=== PATIENT | female | born 1935 | race Caucasian/White ===

== ENCOUNTER 2019-10-18 00:59 | Emergency (ER) | payer MEDICARE, BC ==
--- NOTE | 2019-10-18 02:30 | EDM.PDOC ---
ED HPI GENERAL MEDICAL PROBLEM - General Chief Complaint: Laceration Stated Complaint: AMBULANCE Time Seen by Provider: 10/18/19 01:00 Source of Information: Reports: Patient, EMS, EMS Notes Reviewed, RN, RN Notes Reviewed History Limitations: Reports: No Limitations - History of Present Illness INITIAL COMMENTS - FREE TEXT/NARRATIVE: patient ER per [facility] with complaint of laceration to the ankle, and unable to stop the bleeding. Patient states she bumped her ankle on either her dresser or her bed, is unsure which. Patient states the blood was "squirting everywhere". Patient denies being on blood thinners. Onset: Today, Sudden - Related Data Allergies Allergy/AdvReac Type Severity Reaction Status Date / Time Sulfa (Sulfonamide Allergy Hives Verified 10/18/19 01:04 Antibiotics) Home Meds: Home Meds Latanoprost/Pf [Latanoprost 0.005% Eye Drop] 1 drop EYEBOTH BEDTIME 03/14/18 [ History] Timolol [Betimol] 1 drop EYEBOTH BEDTIME 03/14/18 [History] Aspirin 81 mg PO DAILY 10/18/19 [History] Metoprolol Succinate [Toprol XL] 12.5 mg PO DAILY 10/18/19 [History] Mirtazapine 7.5 mg PO BEDTIME 10/18/19 [History] Omeprazole 20 mg PO DAILY 10/18/19 [History] Rosuvastatin [Crestor] 5 mg PO BEDTIME 10/18/19 [History] amLODIPine [Norvasc] 5 mg PO DAILY 10/18/19 [History] lisinopriL [Lisinopril] 5 mg PO DAILY 10/18/19 [History] Past Medical History - Past Health History Medical/Surgical History: Denies Medical/Surgical History HEENT History: Reports: Glaucoma, Impaired Vision Other HEENT History: wears glasses Cardiovascular History: Reports: None Respiratory History: Reports: None Gastrointestinal History: Reports: None Genitourinary History: Reports: None 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 Musculoskeletal History: Reports: None Neurological History: Reports: None Psychiatric History: Reports: None Endocrine/Metabolic History: Reports: None Hematologic History: Reports: None Immunologic History: Reports: None Other Oncologic History: 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 ED EXAM, SKIN/RASH Exam: See Below Exam Limited By: No Limitations General Appearance: Alert, WD/WN, No Apparent Distress Eye Exam: Bilateral Eye: EOMI, Normal Inspection Ears: Normal External Exam, Hearing Grossly Normal Nose: Normal Inspection Throat/Mouth: Normal Inspection, Normal Voice, No Airway Compromise Head: Atraumatic, Normocephalic Neck: Normal Inspection, Supple, Non-Tender, Full Range of Motion Respiratory/Chest: No Respiratory Distress, Lungs Clear, Normal Breath Sounds, No Accessory Muscle Use, Chest Non-Tender, Decreased Breath Sounds Cardiovascular: Normal Peripheral Pulses, Regular Rate, Rhythm, No Edema, No Gallop, No JVD, No Rub, Systolic Murmur Peripheral Pulses: 2+: Radial (L), Radial (R), Dorsalis Pedis (L), Dorsalis Pedis (R) GI/Abdominal: Normal Bowel Sounds, Soft, Non-Tender (Female) Exam: Deferred Rectal (Female) Exam: Deferred Back Exam: Normal Inspection, Full Range of Motion, NT Extremities: Normal Inspection, Normal Range of Motion, Non-Tender, No Pedal Edema, Normal Capillary Refill Neurological: Alert, Oriented, CN II-XII Intact, Normal Cognition, Normal Gait, Normal Reflexes, No Motor/Sensory Deficits Psychiatric: Normal Affect, Normal Mood Skin: Warm, Dry, Other (puncture wound, medial aspect of right ankle) Location, Skin: Lower Extremity, Right Lymphatic: No Adenopathy ED SKIN PROCEDURES - Laceration/Wound Repair Right Medial Ankle Appearance: Subcutaneous Distal NVT: Neuro & Vascular Intact, No Tendon Injury Exploration/Debridement/Repair: Wound Explored, In a Bloodless Field Closed with: Other (Avitene) Lac/Wound length In cm: 0.1 Drain Placement: No Sterile Dressing Applied: Nurse Tetanus Status Addressed: Other (Patient declines immunizations) Complications: No Complication Description: Arterial bleed from small pinpoint hole in the ankle. Bleeding controlled with pressure dressing upon arrival to the ER. Course - Vital Signs Last Recorded V/S: Last Vital Signs Temp 98.7 F 10/18/19 00:59 Pulse 85 10/18/19 00:59 Resp 18 10/18/19 00:59 BP 125/82 10/18/19 00:59 Pulse Ox 96 10/18/19 00:59 Departure - Departure Time of Disposition: 03:49 Disposition: Home, Self-Care 01 Condition: Good Clinical Impression: Puncture wound - injury - Discharge Information *PRESCRIPTION DRUG MONITORING PROGRAM REVIEWED*: No *COPY OF PRESCRIPTION DRUG MONITORING REPORT IN PATIENT ANTONIO: No Instructions: Puncture Wound, [id number] Referrals: PCP,None [Primary Care Provider] - Forms: ED Department Discharge Additional Instructions: Return to the ER with any further bleeding Follow up with your primary care facility Remove dressing on Monday. Unwrap gauze, then wet the small area of foam over the wound to remove easier May cover with a bandage after dressing is off, until healed Sepsis Event Note - Evaluation Sepsis Screening Result: No Definite Risk - Focused Exam Vital Signs: Vital Signs Temp Pulse Resp BP Pulse Ox 10/18/19 00:59 98.7 F 85 18 125/82 96 Date Exam was Performed: 10/18/19 Time Exam was Performed: 03:49
== END 2019-10-18 04:14 | disposition home or self-care (01) ==
LOC: DL.ED 00:59
DX: S91.031A Puncture wound without foreign body, right ankle, initial encounter (principal); Z88.2 Allergy status to sulfonamides; Z79.82 Long term (current) use of aspirin; Z79.899 Other long term (current) drug therapy; W22.8XXA Striking against or struck by other objects, initial encounter
CPT/HCPCS: 12001; 99282; 99283

== ENCOUNTER 2020-10-11 05:33 | Observation (INO) | payer MEDICARE, BC ==
--- NOTE | 2020-10-11 05:51 | EDM.PDOC ---
<Gayathri Palma - Last Filed: 10/11/20 07:07> ED HPI GENERAL MEDICAL PROBLEM - General Chief Complaint: Lower Extremity Injury/Pain Stated Complaint: AMBULANCE Time Seen by Provider: 10/11/20 05:50 Source of Information: Reports: Patient, EMS, EMS Notes Reviewed, RN, RN Notes Reviewed History Limitations: Reports: No Limitations - History of Present Illness INITIAL COMMENTS - FREE TEXT/NARRATIVE: Patient is an 85-year-old female who presents to ER per [facility] ambulance service with complaint of bilateral knee pain. Patient states she fell appro ximately midnight last night when going to her room to get ready for bed. Patient states she was getting something from a lower cabinet when she fell and was unable to get up again. She scooted herself to her bedroom and laid next to her bed. Patient rates the pain in her knees 10/10 bilaterally. Patient has some tenderness in the left hip area as well. Patient denies hitting her head or being knocked out. Onset: Today, Sudden Bilateral Knee Pain Score (Numeric/FACES): 10 - Related Data Allergies Allergy/AdvReac Type Severity Reaction Status Date / Time Sulfa (Sulfonamide Allergy Hives Verified 10/11/20 05:39 Antibiotics) Home Meds: Home Meds Latanoprost/Pf [Latanoprost 0.005% Eye Drop] 1 drop EYEBOTH BEDTIME 03/14/18 [History] Timolol [Betimol] 1 drop EYEBOTH DAILY 03/14/18 [History] Aspirin 81 mg PO DAILY 10/18/19 [History] Metoprolol Succinate [Toprol XL] 12.5 mg PO DAILY 10/18/19 [History] Mirtazapine 7.5 mg PO BEDTIME 10/18/19 [History] Omeprazole 20 mg PO DAILY 10/18/19 [History] Rosuvastatin [Crestor] 5 mg PO BEDTIME 10/18/19 [History] amLODIPine [Norvasc] 5 mg PO DAILY 10/18/19 [History] lisinopriL [Lisinopril] 5 mg PO DAILY 10/18/19 [History] Past Medical History - Past Health History Medical/Surgical History: Denies Medical/Surgical History HEENT History: Reports: Glaucoma, Impaired Vision Other HEENT History: wears glasses Cardiovascular History: Reports: Hypertension Respiratory History: Reports: None Gastrointestinal History: Reports: None Genitourinary History: Reports: None 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 Musculoskeletal History: Reports: None Neurological History: Reports: None Psychiatric History: Reports: None Endocrine/Metabolic History: Reports: None Hematologic History: Reports: None Immunologic History: Reports: None 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 ED EXAM, GENERAL - Physical Exam Exam: See Below Exam Limited By: Physical Impairment General Appearance: Alert, WD/WN, Mild Distress Eye Exam: Left Eye: Abnormal Pupil (oval shaped), Bilateral Eye: EOMI Ears: Normal External Exam, Hearing Grossly Normal Nose: Normal Inspection Throat/Mouth: Normal Inspection, Normal Voice, No Airway Compromise Head: Atraumatic, Normocephalic Neck: Normal Inspection, Supple, Non-Tender, Full Range of Motion Respiratory/Chest: No Respiratory Distress, Lungs Clear, Normal Breath Sounds, No Accessory Muscle Use Cardiovascular: Normal Peripheral Pulses, Regular Rate, Rhythm Peripheral Pulses: 2+: Radial (L), Radial (R), Dorsalis Pedis (L), Dorsalis Pedis (R) GI/Abdominal: Normal Bowel Sounds, Soft, Non-Tender (Female) Exam: Deferred Rectal (Female) Exam: Deferred Back Exam: Normal Inspection, Full Range of Motion, NT Extremities: No Pedal Edema, Normal Capillary Refill, Joint Swelling (knees bilaterally), Leg Pain (bilateral), Limited Range of Motion (hips and knees bilaterally) Neurological: Alert, Oriented, Normal Cognition Psychiatric: Normal Affect, Normal Mood Skin Exam: Warm, Dry, Intact, Normal Color, No Rash Lymphatic: No Adenopathy Course - Radiology Interpretation Free Text/Narrative:: Hip and pelvis Bilateral xray: Exam: XR Bilateral Hips with Pelvis when Performed Exam date and time: 10/11/2020 6:16 AM Age: 85 years old Clinical indication: Other: Fall; Prior surgery TECHNIQUE: Imaging protocol: XR bilateral hips with pelvis when performed. Views: 2 views. COMPARISON: No relevant prior studies available. FINDINGS: Bones/joints: Total left hip arthroplasty, noncemented, is present. No significant adjacent lucency to suggest loosening or infection. Bone mineralization is decreased. The sacroiliac joints and pubic symphysis are normal. No fracture. Soft tissues: Soft tissues are unremarkable. Gastrointestinal tract: Moderate rectal stool burden is present. 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 Vasculature: Vascular calcifications are noted. IMPRESSION: 1. Left total hip arthroplasty, without evidence of complication. No acute osseous abnormalities. 2. Moderate rectal stool burden. Thank you for allowing us to participate in the care of your patient. Dictated and Authenticated by: Manuel Andrew MD 10/11/2020 6:52 AM Central Time ([place] & [place]) Right knee xray: PROCEDURE INFORMATION: Exam: XR Right Knee Exam date and time: 10/11/2020 6:21 AM Age: 85 years old Clinical indication: Other: Fall TECHNIQUE: Imaging protocol: XR Right knee. Views: 3 views. COMPARISON: No relevant prior studies available. FINDINGS: Bones/joints: Bone mineralization is decreased. No fracture. Joint spacing and alignment are maintained. No joint effusion. Soft tissues: Normal. Vasculature: Vascular calcifications are noted. IMPRESSION: No acute osseous abnormalities. Thank you for allowing us to participate in the care of your patient. Dictated and Authenticated by: Manuel Andrew MD 10/11/2020 6:48 AM Central Time ( & [place]) Left knee xray: PROCEDURE INFORMATION: Exam: XR Left Knee Exam date and time: 10/11/2020 6:27 AM Age: 85 years old Clinical indication: Other: Fall; Prior surgery TECHNIQUE: Imaging protocol: XR Left knee. Views: 3 views. COMPARISON: No relevant prior studies available. FINDINGS: Bones/joints: Bone mineralization is decreased. No fracture. Joint spacing and alignment are maintained. No joint effusion. Soft tissues: Normal. Vasculature: Vascular calcifications are noted. IMPRESSION: No acute osseous abnormalities. Thank you for allowing us to participate in the care of your patient. Dictated and Authenticated by: Manuel Andrew MD 10/11/2020 6:49 AM Central Time ([place] & [place]) See rad report - Re-Assessments/Exams Free Text/Narrative Re-Assessment/Exam: 10/11/20 07:06 Patient care turned over to JABARI Duran at change of shift. Departure - Departure Disposition: Refer to Observation Clinical Impression: Fall from ground level, Impaired mobility and ADLs Bilateral knee pain Qualifiers: Chronicity: acute Qualified Code(s): M25.561 - Pain in right knee; M25.562 - Pain in left knee - Discharge Information Forms: ED Department Discharge Care Plan Goals: Discussed the patient's history, examination, lab results and x-ray results with Dr. Karimi. Dr. Karimi accepted the patient for continued evaluation and management as an observation patient at [facility] in [place]. Sepsis Event Note (ED) - Evaluation Sepsis Screening Result: No Definite Risk <Elpidio Palm - Last Filed: 10/11/20 09:25> Course - Vital Signs Last Recorded V/S: Last Vital Signs Temp 36.5 C 10/11/20 05:33 Pulse 94 10/11/20 05:33 Resp 18 10/11/20 05:33 BP 112/74 10/11/20 09:14 Pulse Ox 100 10/11/20 05:33 - Orders/Labs/Meds Orders: Active Orders 24 hr Category Date Time Status Admission Diagnosis [ADT] Urgent ADT 10/11/20 09:19 Ordered Admission Status [Patient Status] [ADT] Routine ADT 10/11/20 09:19 Ordered CORONAVIRUS COVID-19 JOSÉ LUIS [MO[facility]C] Routine Lab 10/11/20 09:22 Ordered Labs: Laboratory Tests 10/11/20 10/11/20 10/11/20 Range/Units 07:09 07:09 07:49 WBC 13.2 H (5.0-10.0) 10^3/uL RBC 4.03 L (4.2-5.4) 10^6/uL Hgb 9.7 L (12.0-16.0) g/dL Hct 31.4 L (37.0-47.0) % MCV 77.9 L (80-100) fL MCH 24.1 L (27.0-34.0) pg MCHC 30.9 L (33.0-35.0) g/dL Plt Count 216 (150-450) 10^3/uL Neut % (Auto) 78.2 H (42.2-75.2) % Lymph % (Auto) 10.7 L (20.5-50.1) % [place] % (Auto) 9.3 H (2-8) % Eos % (Auto) 1.6 (1.0-3.0) % Baso % (Auto) 0.2 (0.0-1.0) % Sodium 141 (136-145) mmol/L Potassium 4.8 (3.5-5.1) mmol/L Chloride 104 (98-107) mmol/L Carbon Dioxide 27 (21-32) mmol/L Anion Gap 14.8 H (7-13) mEq/L BUN 29 H (7-18) mg/dL Creatinine 1.06 H (0.55-1.02) mg/dL Est Cr Clr Drug Dosing 31.51 mL/min Estimated GFR (MDRD) 49 BUN/Creatinine Ratio 27.4 (No establ ref range) Glucose 122 H (74-99) mg/dL Calcium 9.0 (8.5-10.1) mg/dL Total Bilirubin 0.4 (0.2-1.0) mg/dL AST 22 (15-37) U/L ALT 23 (14-59) U/L Alkaline Phosphatase 72 (46-116) U/L Creatine Kinase 122 (16-191) U/L Total Protein 7.1 (6.4-8.2) g/dL Albumin 3.5 (3.4-5.0) g/dL Globulin 3.6 Albumin/Globulin Ratio 1.0 Urine Color Yellow (YELLOW) Urine Appearance Clear (CLEAR) Urine pH 6.0 (5.0-9.0) Ur Specific [place] 1.025 (1.005-1.030) Urine Protein Negative (NEGATIVE) Urine Glucose (UA) Negative (NEGATIVE) Urine Ketones Negative (NEGATIVE) Urine Occult Blood Negative (NEGATIVE) Urine Nitrite Negative (NEGATIVE) Urine Bilirubin Negative (NEGATIVE) Urine Urobilinogen 0.2 (0.2-1.0) mg/dL Ur Leukocyte Esterase Negative (NEGATIVE) Meds: Medications Discontinued Medications Generic Name Dose Route Start Last Admin Trade Name Freq PRN Reason Stop Dose Admin Acetaminophen 650 mg 10/11/20 08:02 02/21/21 08:07 Tylenol PO 10/11/20 08:03 650 mg NOW ONE Administration Fentanyl 50 mcg 10/11/20 06:00 10/11/20 06:41 Sublimaze IVPUSH 10/11/20 06:01 50 mcg ONETIME ONE Administration Ondansetron HCl 4 mg 10/11/20 06:59 10/11/20 07:02 Zofran IV 10/11/20 07:00 4 mg ONETIME ONE Administration - Re-Assessments/Exams Free Text/Narrative Re-Assessment/Exam: 10/11/20 08:03 The patient was advised of the lab results as well as the x-ray results. The patient continues to report increased bilateral knee pain. The patient reports her current pain continues to be at a 10/10. The patient reports she is not able to stand or move due to her knee pain. The patient does live independently with no assistance available. The patient was given Fentanyl earlier during the visit causing her nausea and vomiting, but no pain relief. Departure - Departure Time of Disposition: 09:23 Condition: Fair - Discharge Information *PRESCRIPTION DRUG MONITORING PROGRAM REVIEWED*: Not Applicable *COPY OF PRESCRIPTION DRUG MONITORING REPORT IN PATIENT ANTONIO: Not Applicable Sepsis Event Note (ED) - Focused Exam Vital Signs: Vital Signs Temp Pulse Resp BP Pulse Ox 10/11/20 09:14 112/74 10/11/20 05:33 36.5 C 94 18 122/96 H 100 - My Orders Last 24 Hours: My Active Orders 10/11/20 09:19 Admission Diagnosis [ADT] Urgent Admission Status [Patient Status] [ADT] Routine 10/11/20 09:22 CORONAVIRUS COVID-19 JOSÉ LUIS [MOLEC] Routine - Assessment/Plan Last 24 Hours: My Active Orders 10/11/20 09:19 Admission Diagnosis [ADT] Urgent Admission Status [Patient Status] [ADT] Routine 10/11/20 09:22 CORONAVIRUS COVID-19 JOSÉ LUIS [MOLEC] Routine
[2020-10-11] MEDS ORDERED: fentaNYL 100 MCG/2 ML SDV IVPUSH ONE (06:00)
--- NOTE | 2020-10-11 06:48 | CR ---
PROCEDURE INFORMATION: Exam: XR Right Knee Exam date and time: 10/11/2020 6:21 AM Age: 85 years old Clinical indication: Other: Fall TECHNIQUE: Imaging protocol: XR Right knee. Views: 3 views. COMPARISON: No relevant prior studies available. FINDINGS: Bones/joints: Bone mineralization is decreased. No fracture. Joint spacing and alignment are maintained. No joint effusion. Soft tissues: Normal. Vasculature: Vascular calcifications are noted. IMPRESSION: No acute osseous abnormalities.
--- NOTE | 2020-10-11 06:49 | CR ---
PROCEDURE INFORMATION: Exam: XR Left Knee Exam date and time: 10/11/2020 6:27 AM Age: 85 years old Clinical indication: Other: Fall; Prior surgery TECHNIQUE: Imaging protocol: XR Left knee. Views: 3 views. COMPARISON: No relevant prior studies available. FINDINGS: Bones/joints: Bone mineralization is decreased. No fracture. Joint spacing and alignment are maintained. No joint effusion. Soft tissues: Normal. Vasculature: Vascular calcifications are noted. IMPRESSION: No acute osseous abnormalities.
--- NOTE | 2020-10-11 06:52 | CR ---
PROCEDURE INFORMATION: Exam: XR Bilateral Hips with Pelvis when Performed Exam date and time: 10/11/2020 6:16 AM Age: 85 years old Clinical indication: Other: Fall; Prior surgery TECHNIQUE: Imaging protocol: XR bilateral hips with pelvis when performed. Views: 2 views. COMPARISON: No relevant prior studies available. FINDINGS: Bones/joints: Total left hip arthroplasty, noncemented, is present. No significant adjacent lucency to suggest loosening or infection. Bone mineralization is decreased. The sacroiliac joints and pubic symphysis are normal. No fracture. Soft tissues: Soft tissues are unremarkable. Gastrointestinal tract: Moderate rectal stool burden is present. 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 Vasculature: Vascular calcifications are noted. IMPRESSION: 1. Left total hip arthroplasty, without evidence of complication. No acute osseous abnormalities. 2. Moderate rectal stool burden.
[2020-10-11] MEDS ORDERED: Ondansetron 4 MG/2 ML SDV IV ONE (06:59)
[2020-10-11 07:34] LABS: ANION GAP 14.8 mEq/L (7-13)
[2020-10-11] MEDS ORDERED: Acetaminophen 325 MG Tab PO ONE (08:02)
[2020-10-11] MEDS ORDERED: Docusate Sodium 100 MG Cap PO PRN (10:50)
[2020-10-11] MEDS ORDERED: Acetaminophen 650 MG Supp RECTAL PRN (10:50)
[2020-10-11] MEDS ORDERED: Magnesium Hydroxide 400 MG/5 ML Susp 30 ML Cup PO PRN (10:50)
--- NOTE | 2020-10-11 10:57 | PCM.HP ---
H&P History of Present Illness - General Date of Service: 10/11/20 Admit Problem/Dx: Admission Diagnosis/Problem Admission Diagnosis/Problem Weakness/bilateral knee pain Source of Information: Patient History Limitations: Reports: No Limitations - History of Present Illness Initial Comments - Free Text/Narative: Isabella is a 85-year-old functional female who lives by herself with past medical history significant for hypertension, hyperlipidemia H/P left total hip arthroplasty. She was brought to the ED via EMS for evaluation following a fall. Per patient last night close to midnight she was reaching out for items in the lower part of her kitchen cabinet. She lost balance and fell to the ground. She did not hit her head or loss consciousness. She was however unable to get up. She wears life alert but did not use it right away. After a few hours on the floor she activated about and EMS brought her to the ED. She denies any prodrome prior to fall. She denies chest pain, shortness of breath. She said she believes she lost her balance and fell to the ground. She reports severe pain to bilateral knees and unable to bear weight on her legs. Pain is sharp, 10 out of 10, nonradiating, worse with movement with no relieving factors. She denies fever, chills. No diarrhea. In the ED vitals unremarkable. Labs significant for WBC 13.2, hemoglobin 9.7. Creatinine 1.06, UA negative for UTI. CK within normal limits. X-ray of the bilateral pelvis negative. Bilateral knee x-ray negative. Admission was requested for further management. Onset of Symptoms: Reports: Sudden Duration of Symptoms: Reports: Minutes: Location: Reports: Lower Extremity, Left, Lower Extremity, Right Severity: Severe Improves with: Reports: None Worsens with: Reports: None Context: Reports: Activity/Exercise, Lifting Associated Symptoms: Reports: No Other Symptoms Bilateral Knee Pain Score (Numeric/FACES): 10 - Related Data Allergies/Adverse Reactions: Allergies Allergy/AdvReac Type Severity Reaction Status Date / Time Sulfa (Sulfonamide Allergy Hives Verified 10/11/20 10:55 Antibiotics) Home Medications: Home Meds Latanoprost/Pf [Latanoprost 0.005% Eye Drop] 1 drop EYEBOTH BEDTIME 03/14/18 [History] Timolol [Betimol] 1 drop EYEBOTH DAILY 03/14/18 [History] Aspirin 81 mg PO DAILY 10/18/19 [History] Metoprolol Succinate [Toprol XL] 12.5 mg PO DAILY 10/18/19 [History] Mirtazapine 7.5 mg PO BEDTIME 10/18/19 [History] Omeprazole 20 mg PO DAILY 10/18/19 [History] Rosuvastatin [Crestor] 5 mg PO BEDTIME 10/18/19 [History] amLODIPine [Norvasc] 5 mg PO DAILY 10/18/19 [History] lisinopriL [Lisinopril] 5 mg PO DAILY 10/18/19 [History] Glycerin/Propylene Glycol [Artificial Tears Drops] 1 drop EYEBOTH BID PRN 10/11/20 [History] Past Medical History - Past Health History Medical/Surgical History: Denies Medical/Surgical History HEENT History: Reports: Glaucoma, Impaired Vision Other HEENT History: wears glasses Cardiovascular History: Reports: Hypertension Respiratory History: Reports: None Gastrointestinal History: Reports: None Genitourinary History: Reports: None SPEECH THERAPIST History: Reports: None Musculoskeletal History: Reports: None Neurological History: Reports: None Psychiatric History: Reports: None Endocrine/Metabolic History: Reports: None Hematologic History: Reports: None Immunologic History: Reports: None Other Oncologic History: 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 - Past Surgical History Head Surgeries/Procedures: Reports: None HEENT Surgical History: Reports: Cataract Surgery GI Surgical History: Reports: Cholecystectomy Dermatological Surgical History: Reports: Skin Graft Social & Family History - Family History Family Medical History: No Pertinent Family History - Tobacco Use Tobacco Use Status *Q: Never Tobacco User Second Hand Smoke Exposure: No - Caffeine Use Caffeine Use: Reports: None - Recreational Drug Use Recreational Drug Use: No H&P Review of Systems - Review of Systems: Review Of Systems: See Below (As per HPI) General: Reports: No Symptoms HEENT: Reports: No Symptoms Pulmonary: Reports: No Symptoms Cardiovascular: Reports: No Symptoms Gastrointestinal: Reports: No Symptoms Genitourinary: Reports: No Symptoms Musculoskeletal: Reports: Other (Bilateral knee pains) Skin: Reports: No Symptoms Psychiatric: Reports: No Symptoms Neurological: Reports: No Symptoms Hematologic/Lymphatic: Reports: No Symptoms Immunologic: Reports: No Symptoms Exam - Exam Exam: See Below (As per HPI) - Vital Signs Vital Signs: Last Vital Signs Temp 97.7 F 10/11/20 05:33 Pulse 94 10/11/20 05:33 Resp 18 10/11/20 05:33 BP 112/74 10/11/20 09:14 Pulse Ox 100 10/11/20 05:33 Weight: 137 lb 8 oz - Exam General: Alert, Oriented, 4 HEENT: PERRLA, Hearing Intact, Mucosa Moist & [place], Nares Patent, Normal Nasal Septum, Posterior Pharynx Clear, Conjunctiva Clear, EOMI, EACs Clear, TMs Clear Neck: Supple, Trachea Midline, 2 Lungs: Clear to Auscultation, Normal Respiratory Effort Cardiovascular: Regular Rate, Regular Rhythm GI/Abdominal Exam: Normal Bowel Sounds, Soft, Non-Tender, No Organomegaly, No Distention, No Abnormal Bruit, No Mass, Pelvis Stable (Female) Exam: Normal External Exam, Normal Speculum Exam, Normal Bimanual Exam Rectal (Female) Exam: Normal Exam, Normal Rectal Tone Back Exam: Normal Inspection, Full Range of Motion, NT Extremities: Normal Inspection, No Pedal Edema, Normal Capillary Refill, Other (Tenderness to bilateral knees. No swelling, bruises. Range of motion limited due to pain) Skin: Warm, Dry, Intact Neurological: Cranial Nerves Intact, Reflexes Equal Bilateral Neuro Extensive - Mental Status: Alert, Oriented x3, Normal Mood/Affect, Normal Cognition Neuro Extensive - Motor, Sensory, Reflexes: CN II-XII Intact, Normal Gait, Normal Reflexes Psychiatric: Alert, Normal Affect, Normal Mood - Patient Data Lab Results Last 24 hrs: Laboratory Results - last 24 hr 10/11/20 10/11/20 10/11/20 Range/Units 07:09 07:09 07:49 WBC 13.2 H (5.0-10.0) 10^3/uL RBC 4.03 L (4.2-5.4) 10^6/uL Hgb 9.7 L (12.0-16.0) g/dL Hct 31.4 L (37.0-47.0) % MCV 77.9 L (80-100) fL MCH 24.1 L (27.0-34.0) pg MCHC 30.9 L (33.0-35.0) g/dL Plt Count 216 (150-450) 10^3/uL Neut % (Auto) 78.2 H (42.2-75.2) % Lymph % (Auto) 10.7 L (20.5-50.1) % [place] % (Auto) 9.3 H (2-8) % Eos % (Auto) 1.6 (1.0-3.0) % Baso % (Auto) 0.2 (0.0-1.0) % Sodium 141 (136-145) mmol/L Potassium 4.8 (3.5-5.1) mmol/L Chloride 104 (98-107) mmol/L Carbon Dioxide 27 (21-32) mmol/L Anion Gap 14.8 H (7-13) mEq/L BUN 29 H (7-18) mg/dL Creatinine 1.06 H (0.55-1.02) mg/dL Est Cr Clr Drug Dosing 31.51 mL/min Estimated GFR (MDRD) 49 BUN/Creatinine Ratio 27.4 (No establ ref range) Glucose 122 H (74-99) mg/dL Calcium 9.0 (8.5-10.1) mg/dL Total Bilirubin 0.4 (0.2-1.0) mg/dL AST 22 (15-37) U/L ALT 23 (14-59) U/L Alkaline Phosphatase 72 (46-116) U/L Creatine Kinase 122 (16-191) U/L Total Protein 7.1 (6.4-8.2) g/dL Albumin 3.5 (3.4-5.0) g/dL Globulin 3.6 Albumin/Globulin Ratio 1.0 Urine Color Yellow (YELLOW) Urine Appearance Clear (CLEAR) Urine pH 6.0 (5.0-9.0) Ur Specific [place] 1.025 (1.005-1.030) Urine Protein Negative (NEGATIVE) Urine Glucose (UA) Negative (NEGATIVE) Urine Ketones Negative (NEGATIVE) Urine Occult Blood Negative (NEGATIVE) Urine Nitrite Negative (NEGATIVE) Urine Bilirubin Negative (NEGATIVE) Urine Urobilinogen 0.2 (0.2-1.0) mg/dL Ur Leukocyte Esterase Negative (NEGATIVE) SARS CoV-2 RNA Rapid JOSÉ LUIS (NEGATIVE) 10/11/20 Range/Units 09:25 WBC (5.0-10.0) 10^3/uL RBC (4.2-5.4) 10^6/uL Hgb (12.0-16.0) g/dL Hct (37.0-47.0) % MCV (80-100) fL MCH (27.0-34.0) pg MCHC (33.0-35.0) g/dL Plt Count (150-450) 10^3/uL Neut % (Auto) (42.2-75.2) % Lymph % (Auto) (20.5-50.1) % [place] % (Auto) (2-8) % Eos % (Auto) (1.0-3.0) % Baso % (Auto) (0.0-1.0) % Sodium (136-145) mmol/L Potassium (3.5-5.1) mmol/L Chloride (98-107) mmol/L Carbon Dioxide (21-32) mmol/L Anion Gap (7-13) mEq/L BUN (7-18) mg/dL Creatinine (0.55-1.02) mg/dL Est Cr Clr Drug Dosing mL/min Estimated GFR (MDRD) BUN/Creatinine Ratio (No establ ref range) Glucose (74-99) mg/dL Calcium (8.5-10.1) mg/dL Total Bilirubin (0.2-1.0) mg/dL AST (15-37) U/L ALT (14-59) U/L Alkaline Phosphatase (46-116) U/L Creatine Kinase (16-191) U/L Total Protein (6.4-8.2) g/dL Albumin (3.4-5.0) g/dL Globulin Albumin/Globulin Ratio Urine Color (YELLOW) Urine Appearance (CLEAR) Urine pH (5.0-9.0) Ur Specific [place] (1.005-1.030) Urine Protein (NEGATIVE) Urine Glucose (UA) (NEGATIVE) Urine Ketones (NEGATIVE) Urine Occult Blood (NEGATIVE) Urine Nitrite (NEGATIVE) Urine Bilirubin (NEGATIVE) Urine Urobilinogen (0.2-1.0) mg/dL Ur Leukocyte Esterase (NEGATIVE) SARS CoV-2 RNA Rapid JOSÉ LUIS Negative (NEGATIVE) Result Diagrams: 10/11/20 07:09 10/11/20 07:09 Problem List Initiated/Reviewed/Updated: Yes Orders Last 24hrs: Active Orders 24 hr Category Date Time Status Admission Diagnosis [ADT] Urgent ADT 10/11/20 09:19 Ordered Admission Status [Patient Status] [ADT] Routine ADT 10/11/20 09:19 Active Ambulate [RC] ASDIRECTED Care 10/11/20 10:50 Ordered Notify Provider Vital Signs [RC] ASDIRECTED Care 10/11/20 10:51 Ordered Oxygen Therapy [RC] PRN Care 10/11/20 10:50 Ordered VTE/DVT Education [RC] PER UNIT ROUTINE Care 10/11/20 10:50 Ordered Vital Signs [RC] Q4H Care 10/11/20 10:50 Ordered OT Evaluation and Treatment [CONS] Routine Cons 10/11/20 10:50 Ordered PT Evaluation and Treatment [CONS] Routine Cons 10/11/20 10:50 Ordered Regular Diet [DIET] Diet 10/11/20 Lunch Ordered CBC WITH AUTO DIFF [HEME] AM Lab 10/13/20 05:11 Ordered MAGNESIUM [CHEM] Routine Lab 10/11/20 10:50 Ordered PHOSPHORUS [CHEM] Routine Lab 10/11/20 10:50 Ordered Acetaminophen [Tylenol] Med 10/11/20 10:50 Ordered 650 mg RECTAL Q4H PRN Acetaminophen/oxyCODONE [Percocet 325-5 MG] Med 10/11/20 10:50 Ordered 1 tab PO Q6H PRN Docusate Sodium [Colace] Med 10/11/20 10:50 Ordered 100 mg PO BID PRN Heparin Sodium Med 10/11/20 21:00 Ordered 5,000 units SUBCUT Q12HR Magnesium Hydroxide [Milk of Magnesia] Med 10/11/20 10:50 Ordered 30 ml PO Q12H PRN Sodium Chloride 0.9% [Normal Saline] 1,000 ml Med 10/11/20 11:00 Ordered IV ASDIRECTED Resuscitation Status Routine Resus Stat 10/11/20 10:50 Ordered Assessment/Plan Comment:: #Bilateral knee pain following a ground-level fall History of the pelvis and bilateral knee negative for acute fractures Patient still complaining of severe bilateral pain and unable to bear weight Admit to medical floor Pain control with Percocet Physical therapy and Occupational Therapy #Leukocytosis Likely reactive Follow-up #Chronic anemia Stable hemoglobin Monitor hemoglobin closely #Hypertension Patient on Norvasc and Toprolol. Continue Monitor BP closely #Hyperlipidemia Continue home medication #Diet Regular #CODE STATUS Discussion with patient and she prefers to be full code at this time
[2020-10-11] MEDS ORDERED: Polyvinyl Alcohol 1.4% Ophth Soln 15 ML Bottle EYEBOTH PRN (11:34)
[2020-10-11] MEDS: Sodium Chloride 0.9% 1,000 ML IV SCH ×2 (13:42→23:57)
[2020-10-11] MEDS ORDERED: POLYVINYL ALCOHOL 1.4% EYEBOTH PRN (14:22)
[2020-10-11] MEDS: Timolol Maleate 0.5% Ophth Soln 5 ML Bottle**OWN MED EYEBOTH SCH (14:48)
[2020-10-11] MEDS ORDERED: Mirtazapine 15 MG Tab PO SCH (21:00)
[2020-10-11] MEDS ORDERED: Rosuvastatin 10 MG Tab PO SCH (21:00)
[2020-10-11] MEDS ORDERED: Latanoprost 0.005% Ophth Soln 2.5 ML Bottle EYEBOTH SCH (21:00)
[2020-10-11] MEDS: Mirtazapine 15 MG Tab**OWN MED PO SCH (21:39)
[2020-10-11] MEDS: Heparin Sodium 5,000 Units/ML Vial SUBCUT SCH (21:40)
[2020-10-11] MEDS: ROSUVASTATIN 5 MG PO SCH (21:41)
[2020-10-11] MEDS: Latanoprost 0.005% Ophth Soln 2.5 ML Bottle**OWN MED EYEBOTH SCH (21:42)
[2020-10-11] MEDS: Acetaminophen/oxyCODONE 325-5 MG Tab PO PRN (21:45)
[2020-10-12] MEDS: Omeprazole 20 MG Cap.CR**OWN MED PO SCH (05:47)
[2020-10-12] MEDS ORDERED: Omeprazole 20 MG Cap.CR PO SCH (06:00)
[2020-10-12] MEDS ORDERED: Timolol Maleate 0.5% Ophth Soln 5 ML Bottle EYEBOTH SCH (09:00)
[2020-10-12] MEDS ORDERED: Lisinopril 5 MG Tab PO SCH (09:00)
[2020-10-12] MEDS ORDERED: amLODIPine 5 MG Tab PO SCH (09:00)
[2020-10-12] MEDS ORDERED: Aspirin 81 MG Tab.Chew PO SCH (09:00)
[2020-10-12] MEDS ORDERED: Metoprolol Succinate 25 MG Tab.ER PO SCH (09:00)
[2020-10-12] MEDS: Timolol Maleate 0.5% Ophth Soln 5 ML Bottle**OWN MED EYEBOTH SCH (09:18)
[2020-10-12] MEDS: Heparin Sodium 5,000 Units/ML Vial SUBCUT SCH ×2 (09:28→21:16)
[2020-10-12] MEDS: Acetaminophen/oxyCODONE 325-5 MG Tab PO PRN (09:30)
--- NOTE | 2020-10-12 09:50 | PCM.PN ---
- General Info Date of Service: 10/12/20 Subjective Update: Isabella is a 85-year-old functional female who lives by herself with past medical history significant for hypertension, hyperlipidemia H/P left total hip arthropl asty. She was brought to the ED via EMS for evaluation following a fall. She sustained severe pain to bilateral knees and unable to bear weight. Images negative for fractures. Patient was seen today and examined. Chart reviewed. Still complaining of significant pain to both knees. Unable to get out of bed because of pain. She rates pain as 8 out of 10. Worse with movement. Physical therapy and Occupational Therapy are working with patient. Functional Status: Reports: Pain Controlled - Review of Systems General: Reports: No Symptoms HEENT: Reports: No Symptoms Pulmonary: Reports: No Symptoms Cardiovascular: Reports: No Symptoms Gastrointestinal: Reports: No Symptoms Genitourinary: Reports: No Symptoms Musculoskeletal: Reports: No Symptoms Skin: Reports: No Symptoms Neurological: Reports: No Symptoms Psychiatric: Reports: No Symptoms - Patient Data Vitals - Most Recent: Last Vital Signs Temp 98.6 F 10/11/20 23:53 Pulse 87 10/11/20 23:53 Resp 16 10/11/20 23:53 BP 101/73 10/11/20 23:53 Pulse Ox 92 L 10/11/20 23:53 Weight - Most Recent: 118 lb 9.6 oz I&O - Last 24 Hours: Intake & Output 10/11/20 10/12/20 10/12/20 22:59 06:59 14:59 Intake Total 1140 1249 Balance 1140 1249 Lab Results Last 24 Hours: Laboratory Results - last 24 hr 10/11/20 10/11/20 Range/Units 07:03 09:25 Phosphorus 3.7 (2.6-4.7) mg/dL Magnesium 2.1 (1.8-2.4) mg/dL SARS CoV-2 RNA Rapid JOSÉ LUIS Negative (NEGATIVE) Med Orders - Current: Current Medications Acetaminophen (Tylenol) 650 mg PO Q8H PRN PRN Reason: Pain Amlodipine Besylate (Norvasc) 5 mg PO DAILY SOFY Artificial Tears (Liquitears 1.4% Ophth Soln) 0 ml EYEBOTH BID PRN PRN Reason: Dry Eyes Aspirin (Aspirin) 81 mg PO DAILY SOFY Docusate Sodium (Colace) 100 mg PO BID PRN PRN Reason: Constipation Heparin Sodium (Porcine) (Heparin Sodium) 5,000 units SUBCUT Q12HR [facility] Last Admin: 10/12/20 09:28 Dose: 5,000 units Documented by: Sodium Chloride (Normal Saline) 1,000 mls @ 100 mls/hr IV ASDIRECTED [facility] Last Admin: 10/11/20 23:57 Dose: 100 mls/hr Documented by: Latanoprost (Xalatan 0.005% Ophth Soln) 0 ml EYEBOTH BEDTIME [facility] Last Admin: 10/11/20 21:42 Dose: 1 drop Documented by: Lisinopril (Prinivil) 5 mg PO DAILY [facility] Magnesium Hydroxide (Milk Of Magnesia) 30 ml PO Q12H PRN PRN Reason: Constipation Metoprolol Succinate (Toprol Xl) 12.5 mg PO DAILY [facility] Mirtazapine (Remeron) 7.5 mg PO BEDTIME [facility] Last Admin: 10/11/20 21:39 Dose: 7.5 mg Documented by: Rosuvastatin 5 Mg (TabOwn Med) 5 each PO BEDTIME [facility] Last Admin: 10/11/20 21:41 Dose: 5 each Documented by: Omeprazole (Omeprazole) 20 mg PO ACBREAKFAST [facility] Last Admin: 10/12/20 05:47 Dose: 20 mg Documented by: Oxycodone/Acetaminophen (Percocet 325-5 Mg) 1 tab PO Q6H PRN PRN Reason: Pain (severe 7-10) Last Admin: 10/12/20 09:30 Dose: 1 tab Documented by: Timolol Maleate (Timoptic 0.5% Ophth Soln) 0 ml EYEBOTH DAILY [facility] Last Admin: 10/11/20 14:48 Dose: 1 drop Documented by: Discontinued Medications Acetaminophen (Tylenol) 650 mg PO NOW ONE Stop: 10/11/20 08:03 Last Admin: 10/11/20 08:07 Dose: 650 mg Documented by: Acetaminophen (Tylenol) 650 mg RECTAL Q4H PRN PRN Reason: Pain (mild 1-3) Amlodipine Besylate (Norvasc) 5 mg PO DAILY [facility] Artificial Tears (Liquitears 1.4% Ophth Soln) 0 ml EYEBOTH BID PRN PRN Reason: Dry Eyes Aspirin (Aspirin) 81 mg PO DAILY [facility] Fentanyl (Sublimaze) 50 mcg IVPUSH ONETIME ONE Stop: 10/11/20 06:01 Last Admin: 10/11/20 06:41 Dose: 50 mcg Documented by: Latanoprost (Xalatan 0.005% Ophth Soln) 0 ml EYEBOTH BEDTIME SOFY Lisinopril (Prinivil) 5 mg PO DAILY SOFY Metoprolol Succinate (Toprol Xl) 12.5 mg PO DAILY SOFY Mirtazapine (Remeron) 7.5 mg PO BEDTIME SOFY Omeprazole (Omeprazole) 20 mg PO ACBREAKFAST SOFY Ondansetron HCl (Zofran) 4 mg IV ONETIME ONE Stop: 10/11/20 07:00 Last Admin: 10/11/20 07:02 Dose: 4 mg Documented by: Rosuvastatin Calcium (Crestor) 5 mg PO BEDTIME SOFY Timolol Maleate (Timoptic 0.5% Ophth Soln) 0 ml EYEBOTH DAILY SOFY - Exam Quality Assessment: DVT Prophylaxis General: Alert, Oriented HEENT: Pupils Equal, Pupils Reactive, EOMI, Mucous Membr. Moist/[place] Neck: Supple Lungs: Clear to Auscultation, Normal Respiratory Effort Cardiovascular: Regular Rate, Regular Rhythm GI/Abdominal Exam: Normal Bowel Sounds, Soft, Non-Tender, No Organomegaly, No Distention, No Abnormal Bruit, No Mass, Pelvis Stable (Female) Exam: Normal External Exam, Normal Speculum Exam, Normal Bimanual Exam Back Exam: Normal Inspection, Full Range of Motion Extremities: Normal Inspection, Normal Range of Motion, Non-Tender, No Pedal Edema, Normal Capillary Refill Skin: Warm, Dry, Intact Wound/Incisions: Healing Well Neurological: No New Focal Deficit Psy/Mental Status: Alert, Normal Affect, Normal Mood - Patient Data Lab Results Last 24 hrs: Laboratory Results - last 24 hr 10/11/20 10/11/20 Range/Units 07:03 09:25 Phosphorus 3.7 (2.6-4.7) mg/dL Magnesium 2.1 (1.8-2.4) mg/dL SARS CoV-2 RNA Rapid JOSÉ LUIS Negative (NEGATIVE) Result Diagrams: 10/12/20 09:57 10/12/20 09:57 Sepsis Event Note - Evaluation Sepsis Screening Result: No Definite Risk - Focused Exam Vital Signs: Vital Signs Temp Pulse Resp BP Pulse Ox 10/11/20 23:53 98.6 F 87 16 101/73 92 L - Problem List Review Problem List Initiated/Reviewed/Updated: Yes - My Orders Last 24 Hours: My Active Orders 10/11/20 10:50 Ambulate [RC] ASDIRECTED Oxygen Therapy [RC] PRN VTE/DVT Education [RC] PER UNIT ROUTINE Vital Signs [RC] 00,04,08,12,16,20 OT Evaluation and Treatment [CONS] Routine PT Evaluation and Treatment [CONS] Routine Acetaminophen/oxyCODONE [Percocet 325-5 MG] 1 tab PO Q6H PRN Docusate Sodium [Colace] 100 mg PO BID PRN Magnesium Hydroxide [Milk of Magnesia] 30 ml PO Q12H PRN Resuscitation Status Routine 10/11/20 10:51 Notify Provider Vital Signs [RC] DAILY 10/11/20 11:00 Sodium Chloride 0.9% [Normal Saline] 1,000 ml IV ASDIRECTED 10/11/20 Lunch Regular Diet [DIET] 10/11/20 14:22 Polyvinyl Alcohol [LiquiTears 1.4% Ophth Soln] 0 ml EYEBOTH BID PRN 10/11/20 14:30 timoloL maleate [Timoptic 0.5% Ophth Soln] 0 ml EYEBOTH DAILY 10/11/20 17:38 Acetaminophen [TylenoL] 650 mg PO Q8H PRN 10/11/20 21:00 Heparin Sodium 5,000 units SUBCUT Q12HR Latanoprost [Xalatan 0.005% Ophth Soln] 0 ml EYEBOTH BEDTIME Mirtazapine [Remeron] 7.5 mg PO BEDTIME Non-Formulary Medication [NF Drug] 5 each PO BEDTIME 10/12/20 06:00 Omeprazole 20 mg PO ACBREAKFAST 10/12/20 08:30 BASIC METABOLIC PANEL,BMP [CHEM] Routine CBC W/O DIFF,HEMOGRAM [HEME] Routine MAGNESIUM [CHEM] Routine PHOSPHORUS [CHEM] Routine 10/12/20 09:00 Aspirin 81 mg PO DAILY Metoprolol Succinate [Toprol XL] 12.5 mg PO DAILY amLODIPine [Norvasc] 5 mg PO DAILY lisinopriL [Prinivil] 5 mg PO DAILY 10/13/20 05:11 CBC WITH AUTO DIFF [HEME] AM - Plan Plan:: #Bilateral knee pain following a ground-level fall History of the pelvis and bilateral knee negative for acute fractures Patient still complaining of severe bilateral pain and unable to bear weight Continue pain control with Percocet Physical therapy and Occupational Therapy #Leukocytosis Likely reactive Resolved #Chronic anemia Stable hemoglobin Monitor hemoglobin closely #Hypertension Patient on Norvasc and Toprolol. Continue Monitor BP closely #Hyperlipidemia Continue home medication #Diet Regular #CODE STATUS Discussion with patient and she prefers to be full code at this time
[2020-10-12] MEDS: Aspirin 81 MG Tab.Chew**OWN MED PO SCH (10:21)
[2020-10-12 10:30] LABS: ANION GAP 13.2 mEq/L (7-13)
[2020-10-12] MEDS: amLODIPine 5 MG Tab**OWN MED PO SCH (12:56)
[2020-10-12] MEDS: Lisinopril 5 MG Tab**OWN MED PO SCH (12:57)
[2020-10-12] MEDS: Metoprolol Succinate 25 MG Tab.ER**OWN MED PO SCH (12:57)
[2020-10-12] MEDS ORDERED: Menthol/Methyl Salicylate 85 GM Tube TOP PRN (14:46)
[2020-10-12] MEDS: ROSUVASTATIN 5 MG PO SCH (21:25)
[2020-10-12] MEDS: Mirtazapine 15 MG Tab**OWN MED PO SCH (21:25)
[2020-10-12] MEDS: Latanoprost 0.005% Ophth Soln 2.5 ML Bottle**OWN MED EYEBOTH SCH (21:27)
[2020-10-12] MEDS: Sodium Chloride 0.9% 1,000 ML IV SCH (23:48)
[2020-10-13] MEDS: Acetaminophen 325 MG Tab PO PRN ×2 (00:39→21:52)
[2020-10-13] MEDS: Omeprazole 20 MG Cap.CR**OWN MED PO SCH (06:40)
[2020-10-13] MEDS: Heparin Sodium 5,000 Units/ML Vial SUBCUT SCH ×2 (08:40→21:54)
[2020-10-13] MEDS: Aspirin 81 MG Tab.Chew**OWN MED PO SCH (09:12)
[2020-10-13] MEDS: amLODIPine 5 MG Tab**OWN MED PO SCH (09:13)
[2020-10-13] MEDS: Lisinopril 5 MG Tab**OWN MED PO SCH (09:15)
[2020-10-13] MEDS: Timolol Maleate 0.5% Ophth Soln 5 ML Bottle**OWN MED EYEBOTH SCH (09:16)
[2020-10-13] MEDS: Metoprolol Succinate 25 MG Tab.ER**OWN MED PO SCH (09:17)
[2020-10-13] MEDS: Sodium Chloride 0.9% 1,000 ML IV SCH ×2 (09:23→20:23)
--- NOTE | 2020-10-13 11:43 | PCM.PN ---
- General Info Date of Service: 10/13/20 Admission Dx/Problem (Free Text): Status post ground-level fall, bilateral knee pain Subjective Update: Isabella is a 85-year-old functional female who lives by herself with past medical history significant for hypertension, hyperlipidemia H/P left total hip arthroplasty. She was brought to the ED via EMS for evaluation following a fall. She sustained severe pain to bilateral knees and unable to bear weight. Images negative for fractures. Patient was seen today and examined. Chart reviewed. She is still complaining of pain to both knees though she endorsed it is improving. Pain is worse when she tries to bear weight. She has no other symp toms this morning. She will continue to work with physical therapy and Occupational Therapy Functional Status: Reports: Pain Controlled - Review of Systems General: Reports: No Symptoms HEENT: Reports: No Symptoms Pulmonary: Reports: No Symptoms Cardiovascular: Reports: No Symptoms Gastrointestinal: Reports: No Symptoms Genitourinary: Reports: No Symptoms Musculoskeletal: Reports: No Symptoms Skin: Reports: No Symptoms Neurological: Reports: No Symptoms Psychiatric: Reports: No Symptoms - Patient Data Vitals - Most Recent: Last Vital Signs Temp 97.9 F 10/13/20 07:53 Pulse 78 10/13/20 09:17 Resp 20 10/13/20 07:53 BP 109/62 10/13/20 09:17 Pulse Ox 96 10/13/20 10:00 Weight - Most Recent: 118 lb 9.6 oz I&O - Last 24 Hours: Intake & Output 10/12/20 10/13/20 10/13/20 22:59 06:59 14:59 Intake Total 550 50 325 Output Total 300 500 Balance 250 -450 325 Lab Results Last 24 Hours: Laboratory Results - last 24 hr 10/13/20 Range/Units 06:15 WBC 5.1 (5.0-10.0) 10^3/uL RBC 3.47 L (4.2-5.4) 10^6/uL Hgb 8.5 L (12.0-16.0) g/dL Hct 27.6 L (37.0-47.0) % MCV 79.5 L (80-100) fL MCH 24.5 L (27.0-34.0) pg MCHC 30.8 L (33.0-35.0) g/dL Plt Count 171 (150-450) 10^3/uL Neut % (Auto) 41.7 L (42.2-75.2) % Lymph % (Auto) 37.4 (20.5-50.1) % Boyle % (Auto) 12.6 H (2-8) % Eos % (Auto) 7.7 H (1.0-3.0) % Baso % (Auto) 0.6 (0.0-1.0) % Med Orders - Current: Current Medications Acetaminophen (Tylenol) 650 mg PO Q8H PRN PRN Reason: Pain Last Admin: 10/13/20 00:39 Dose: 650 mg Documented by: Amlodipine Besylate (Norvasc) 5 mg PO DAILY [facility] Last Admin: 10/13/20 09:13 Dose: Not Given Documented by: Artificial Tears (Liquitears 1.4% Ophth Soln) 0 ml EYEBOTH BID PRN PRN Reason: Dry Eyes Aspirin (Aspirin) 81 mg PO DAILY [facility] Last Admin: 10/13/20 09:12 Dose: 81 mg Documented by: Docusate Sodium (Colace) 100 mg PO BID PRN PRN Reason: Constipation Heparin Sodium (Porcine) (Heparin Sodium) 5,000 units SUBCUT Q12HR [facility] Last Admin: 10/13/20 08:40 Dose: 5,000 units Documented by: Sodium Chloride (Normal Saline) 1,000 mls @ 100 mls/hr IV ASDIRECTED [facility] Last Admin: 10/13/20 09:23 Dose: 100 mls/hr Documented by: Latanoprost (Xalatan 0.005% Ophth Soln) 0 ml EYEBOTH BEDTIME [facility] Last Admin: 10/12/20 21:27 Dose: 1 drop Documented by: Lisinopril (Prinivil) 5 mg PO DAILY [facility] Last Admin: 10/13/20 09:15 Dose: Not Given Documented by: Magnesium Hydroxide (Milk Of Magnesia) 30 ml PO Q12H PRN PRN Reason: Constipation Methyl Salicylate (Icy Hot Cream) 0 gm TOP QID PRN PRN Reason: Pain Metoprolol Succinate (Toprol Xl) 12.5 mg PO DAILY [facility] Last Admin: 10/13/20 09:17 Dose: Not Given Documented by: Mirtazapine (Remeron) 7.5 mg PO BEDTIME [facility] Last Admin: 10/12/20 21:25 Dose: 7.5 mg Documented by: Rosuvastatin 5 Mg (TabOwn Med) 5 each PO BEDTIME [facility] Last Admin: 10/12/20 21:25 Dose: 5 each Documented by: Omeprazole (Omeprazole) 20 mg PO ACBREAKFAST [facility] Last Admin: 10/13/20 06:40 Dose: 20 mg Documented by: Timolol Maleate (Timoptic 0.5% Ophth Soln) 0 ml EYEBOTH DAILY [facility] Last Admin: 10/13/20 09:16 Dose: 1 drop Documented by: Discontinued Medications Acetaminophen (Tylenol) 650 mg PO NOW ONE Stop: 10/11/20 08:03 Last Admin: 10/11/20 08:07 Dose: 650 mg Documented by: Acetaminophen (Tylenol) 650 mg RECTAL Q4H PRN PRN Reason: Pain (mild 1-3) Amlodipine Besylate (Norvasc) 5 mg PO DAILY [facility] Artificial Tears (Liquitears 1.4% Ophth Soln) 0 ml EYEBOTH BID PRN PRN Reason: Dry Eyes Aspirin (Aspirin) 81 mg PO DAILY [facility] Fentanyl (Sublimaze) 50 mcg IVPUSH ONETIME ONE Stop: 10/11/20 06:01 Last Admin: 10/11/20 06:41 Dose: 50 mcg Documented by: Latanoprost (Xalatan 0.005% Ophth Soln) 0 ml EYEBOTH BEDTIME [facility] Lisinopril (Prinivil) 5 mg PO DAILY [facility] Metoprolol Succinate (Toprol Xl) 12.5 mg PO DAILY [facility] Mirtazapine (Remeron) 7.5 mg PO BEDTIME [facility] Omeprazole (Omeprazole) 20 mg PO ACBREAKFAST [facility] Ondansetron HCl (Zofran) 4 mg IV ONETIME ONE Stop: 10/11/20 07:00 Last Admin: 10/11/20 07:02 Dose: 4 mg Documented by: Oxycodone/Acetaminophen (Percocet 325-5 Mg) 1 tab PO Q6H PRN PRN Reason: Pain (severe 7-10) Last Admin: 10/12/20 09:30 Dose: 1 tab Documented by: Rosuvastatin Calcium (Crestor) 5 mg PO BEDTIME [facility] Timolol Maleate (Timoptic 0.5% Ophth Soln) 0 ml EYEBOTH DAILY [facility] - Exam Quality Assessment: DVT Prophylaxis General: Alert, Oriented HEENT: Pupils Equal, Pupils Reactive, EOMI, Mucous Membr. Moist/[place] Neck: Supple Lungs: Clear to Auscultation, Normal Respiratory Effort Cardiovascular: Regular Rate, Regular Rhythm GI/Abdominal Exam: Normal Bowel Sounds, Soft, Non-Tender, No Organomegaly, No Distention, No Abnormal Bruit, No Mass, Pelvis Stable (Female) Exam: Normal External Exam, Normal Speculum Exam, Normal Bimanual Ex am Back Exam: Normal Inspection, Full Range of Motion Extremities: Normal Inspection, Normal Range of Motion, Non-Tender, No Pedal Edema, Normal Capillary Refill Skin: Warm, Dry, Intact Wound/Incisions: Healing Well Neurological: No New Focal Deficit Psy/Mental Status: Alert, Normal Affect, Normal Mood - Patient Data Lab Results Last 24 hrs: Laboratory Results - last 24 hr 10/13/20 Range/Units 06:15 WBC 5.1 (5.0-10.0) 10^3/uL RBC 3.47 L (4.2-5.4) 10^6/uL Hgb 8.5 L (12.0-16.0) g/dL Hct 27.6 L (37.0-47.0) % MCV 79.5 L (80-100) fL MCH 24.5 L (27.0-34.0) pg MCHC 30.8 L (33.0-35.0) g/dL Plt Count 171 (150-450) 10^3/uL Neut % (Auto) 41.7 L (42.2-75.2) % Lymph % (Auto) 37.4 (20.5-50.1) % Boyle % (Auto) 12.6 H (2-8) % Eos % (Auto) 7.7 H (1.0-3.0) % Baso % (Auto) 0.6 (0.0-1.0) % Result Diagrams: 10/13/20 06:15 10/12/20 09:57 Sepsis Event Note - Evaluation Sepsis Screening Result: No Definite Risk - Focused Exam Vital Signs: Vital Signs Temp Pulse Pulse Resp BP BP Pulse Ox 10/13/20 10:00 10/13/20 09:17 78 109/62 10/13/20 09:15 109/62 10/13/20 09:13 109/62 10/13/20 07:53 97.9 F 78 20 109/62 96 10/13/20 04:00 98.0 F 77 132/59 L 91 L 10/13/20 00:00 97.8 F 69 18 109/41 L 93 L Pulse Ox 10/13/20 10:00 96 10/13/20 09:17 10/13/20 09:15 10/13/20 09:13 10/13/20 07:53 10/13/20 04:00 10/13/20 00:00 - Problem List Review Problem List Initiated/Reviewed/Updated: Yes - My Orders Last 24 Hours: My Active Orders 10/12/20 14:46 Menthol/Methyl Salicylate [Icy Hot Cream] See Dose Instructions TOP QID PRN - Plan Plan:: #Bilateral knee pain following a ground-level fall History of the pelvis and bilateral knee negative for acute fractures Still reports bilateral knee pain worse when she bears weight Continue current pain medication Physical therapy and Occupational Therapy Social work consulted. Looking for placement #Leukocytosis Likely reactive Resolved #Chronic anemia Stable hemoglobin Monitor hemoglobin closely #Hypertension Patient on Norvasc and Toprolol. Continue Monitor BP closely #Hyperlipidemia Continue home medication #Diet Regular #CODE STATUS Discussion with patient and she prefers to be full code at this time #Disposition: SNF rehab
[2020-10-13] MEDS ORDERED: diphenhydrAMINE 25 MG Tab PO PRN (17:09)
[2020-10-13] MEDS: Mirtazapine 15 MG Tab**OWN MED PO SCH (21:55)
[2020-10-13] MEDS: Latanoprost 0.005% Ophth Soln 2.5 ML Bottle**OWN MED EYEBOTH SCH (21:56)
[2020-10-13] MEDS: ROSUVASTATIN 5 MG PO SCH (21:56)
[2020-10-14] MEDS: Omeprazole 20 MG Cap.CR**OWN MED PO SCH (06:38)
[2020-10-14] MEDS: Sodium Chloride 0.9% 1,000 ML IV SCH (06:48)
[2020-10-14] MEDS: Aspirin 81 MG Tab.Chew**OWN MED PO SCH (08:01)
[2020-10-14] MEDS: Metoprolol Succinate 25 MG Tab.ER**OWN MED PO SCH (08:02)
[2020-10-14] MEDS: Lisinopril 5 MG Tab**OWN MED PO SCH (08:03)
[2020-10-14] MEDS: amLODIPine 5 MG Tab**OWN MED PO SCH (08:04)
[2020-10-14] MEDS: Timolol Maleate 0.5% Ophth Soln 5 ML Bottle**OWN MED EYEBOTH SCH (08:05)
[2020-10-14] MEDS: Heparin Sodium 5,000 Units/ML Vial SUBCUT SCH (08:07)
--- NOTE | 2020-10-14 10:17 | PCM.DCSUM1 ---
Discharge Summary - Hospital Course Free Text/Narrative:: Isabella is a 85-year-old functional female who lives by herself with past medical history significant for hypertension, hyperlipidemia H/P left total hip arthroplasty. She was brought to the ED via EMS for evaluation following a fall. She sustained severe pain to bilateral knees and unable to bear weight. Images negative for fractures. She received PT/OT. She was discharged to a senior care home. Diagnosis: Stroke: No - Discharge Data Discharge Date: 10/14/20 Discharge Disposition: DC/Tfer to SNF 03 Condition: Good - Referral to Home Health Primary Care Physician: Khushboo Richards MD - Patient Summary/Data Consults: Consultations 10/11/20 10:50 OT Evaluation and Treatment [CONS] Routine PT Evaluation and Treatment [CONS] Routine - Discharge Plan *PRESCRIPTION DRUG MONITORING PROGRAM REVIEWED*: Not Applicable *COPY OF PRESCRIPTION DRUG MONITORING REPORT IN PATIENT ANTNOIO: Not Applicable Home Medications: Home Meds Latanoprost/Pf [Latanoprost 0.005% Eye Drop] 1 drop EYEBOTH BEDTIME 03/14/18 [History] Aspirin 81 mg PO DAILY 10/18/19 [History] Metoprolol Succinate [Toprol XL] 12.5 mg PO DAILY 10/18/19 [History] Mirtazapine 7.5 mg PO BEDTIME 10/18/19 [History] Omeprazole 20 mg PO DAILY 10/18/19 [History] Rosuvastatin [Crestor] 5 mg PO BEDTIME 10/18/19 [History] amLODIPine [Norvasc] 5 mg PO DAILY 10/18/19 [History] lisinopriL [Lisinopril] 5 mg PO DAILY 10/18/19 [History] Glycerin/Propylene Glycol [Artificial Tears Drops] 1 drop EYEBOTH BID PRN 10/11/20 [History] Timolol Maleate/PF [Timolol Maleate 0.5% Eye Drop] 1 each EYEBOTH DAILY 10/11/20 [History] Referrals: Khushboo Richards MD [Primary Care Provider] - - Discharge Summary/Plan Comment DC Time >30 min.: Yes - General Info Date of Service: 10/14/20 Admission Dx/Problem (Free Text: Status post ground-level fall, bilateral knee pain Subjective Update: Continues to complain of pain. No new concerns. Functional Status: Reports: Pain Controlled - Review of Systems General: Reports: No Symptoms HEENT: Reports: No Symptoms Pulmonary: Reports: No Symptoms Cardiovascular: Reports: No Symptoms Gastrointestinal: Reports: No Symptoms Genitourinary: Reports: No Symptoms Musculoskeletal: Reports: Foot Pain Skin: Reports: No Symptoms Neurological: Reports: No Symptoms Psychiatric: Reports: No Symptoms - Patient Data Vitals - Most Recent: Last Vital Signs Temp 97.7 F 10/14/20 08:00 Pulse 72 10/14/20 08:02 Resp 16 10/14/20 08:00 BP 138/72 10/14/20 08:04 Pulse Ox 95 10/14/20 08:00 Weight - Most Recent: 118 lb 9.6 oz I&O - Last 24 hours: Intake & Output 10/13/20 10/14/20 10/14/20 22:59 06:59 14:59 Intake Total 1357 957 Output Total 200 1000 Balance 1157 -43 Lab Results - Last 24 hrs: Laboratory Results - last 24 hr 10/14/20 Range/Units 09:10 SARS-CoV-2 RNA (JOSÉ LUIS) Negative (NEGATIVE) Med Orders - Current: Current Medications Acetaminophen (Tylenol) 650 mg PO Q8H PRN PRN Reason: Pain Last Admin: 10/13/20 21:52 Dose: 650 mg Documented by: Amlodipine Besylate (Norvasc) 5 mg PO DAILY [facility] Last Admin: 10/14/20 08:04 Dose: 5 mg Documented by: Artificial Tears (Liquitears 1.4% Ophth Soln) 0 ml EYEBOTH BID PRN PRN Reason: Dry Eyes Aspirin (Aspirin) 81 mg PO DAILY [facility] Last Admin: 10/14/20 08:01 Dose: 81 mg Documented by: Diphenhydramine HCl (Benadryl) 25 mg PO BEDTIME PRN PRN Reason: Sleep Docusate Sodium (Colace) 100 mg PO BID PRN PRN Reason: Constipation Heparin Sodium (Porcine) (Heparin Sodium) 5,000 units SUBCUT Q12HR [facility] Last Admin: 10/14/20 08:07 Dose: 5,000 units Documented by: Sodium Chloride (Normal Saline) 1,000 mls @ 100 mls/hr IV ASDIRECTED [facility] Last Admin: 10/14/20 06:48 Dose: 100 mls/hr Documented by: Latanoprost (Xalatan 0.005% Ophth Soln) 0 ml EYEBOTH BEDTIME [facility] Last Admin: 10/13/20 21:56 Dose: 1 drop Documented by: Lisinopril (Prinivil) 5 mg PO DAILY [facility] Last Admin: 10/14/20 08:03 Dose: 5 mg Documented by: Magnesium Hydroxide (Milk Of Magnesia) 30 ml PO Q12H PRN PRN Reason: Constipation Methyl Salicylate (Icy Hot Cream) 0 gm TOP QID PRN PRN Reason: Pain Metoprolol Succinate (Toprol Xl) 12.5 mg PO DAILY [facility] Last Admin: 10/14/20 08:02 Dose: 12.5 mg Documented by: Mirtazapine (Remeron) 7.5 mg PO BEDTIME [facility] Last Admin: 10/13/20 21:55 Dose: 7.5 mg Documented by: Rosuvastatin 5 Mg (TabOwn Med) 5 each PO BEDTIME [facility] Last Admin: 10/13/20 21:56 Dose: 5 each Documented by: Omeprazole (Omeprazole) 20 mg PO ACBREAKFAST [facility] Last Admin: 10/14/20 06:38 Dose: 20 mg Documented by: Timolol Maleate (Timoptic 0.5% Ophth Soln) 0 ml EYEBOTH DAILY [facility] Last Admin: 10/14/20 08:05 Dose: 2 drop Documented by: Discontinued Medications Acetaminophen (Tylenol) 650 mg PO NOW ONE Stop: 10/11/20 08:03 Last Admin: 10/11/20 08:07 Dose: 650 mg Documented by: Acetaminophen (Tylenol) 650 mg RECTAL Q4H PRN PRN Reason: Pain (mild 1-3) Amlodipine Besylate (Norvasc) 5 mg PO DAILY [facility] Artificial Tears (Liquitears 1.4% Ophth Soln) 0 ml EYEBOTH BID PRN PRN Reason: Dry Eyes Aspirin (Aspirin) 81 mg PO DAILY [facility] Fentanyl (Sublimaze) 50 mcg IVPUSH ONETIME ONE Stop: 10/11/20 06:01 Last Admin: 10/11/20 06:41 Dose: 50 mcg Documented by: Latanoprost (Xalatan 0.005% Ophth Soln) 0 ml EYEBOTH BEDTIME [facility] Lisinopril (Prinivil) 5 mg PO DAILY [facility] Metoprolol Succinate (Toprol Xl) 12.5 mg PO DAILY [facility] Mirtazapine (Remeron) 7.5 mg PO BEDTIME [facility] Omeprazole (Omeprazole) 20 mg PO ACBREAKFAST [facility] Ondansetron HCl (Zofran) 4 mg IV ONETIME ONE Stop: 10/11/20 07:00 Last Admin: 10/11/20 07:02 Dose: 4 mg Documented by: Oxycodone/Acetaminophen (Percocet 325-5 Mg) 1 tab PO Q6H PRN PRN Reason: Pain (severe 7-10) Last Admin: 10/12/20 09:30 Dose: 1 tab Documented by: Rosuvastatin Calcium (Crestor) 5 mg PO BEDTIME [facility] Timolol Maleate (Timoptic 0.5% Ophth Soln) 0 ml EYEBOTH DAILY [facility] - Exam General: Reports: Alert, Oriented HEENT: Reports: Pupils Equal, Pupils Reactive, EOMI, Mucous Membr. Moist/[place] Neck: Reports: Supple Lungs: Reports: Clear to Auscultation, Normal Respiratory Effort Cardiovascular: Reports: Regular Rate, Regular Rhythm GI/Abdominal Exam: Normal Bowel Sounds, Soft, Non-Tender, No Organomegaly, No Distention, No Abnormal Bruit, No Mass, Pelvis Stable Back Exam: Reports: Normal Inspection, Full Range of Motion Extremities: Normal Inspection, Normal Range of Motion, Non-Tender, No Pedal Edema, Normal Capillary Refill Skin: Reports: Warm, Dry, Intact Neurological: Reports: No New Focal Deficit Psy/Mental Status: Reports: Alert, Normal Affect, Normal Mood
== END 2020-10-14 09:40 ==
LOC: DL.ED 05:33 → DL.MS 09:35
PROVIDERS: ADMIT Student in an Organized Health Care Education/Training Program; ATTEND Internal Medicine
DX: M25.562 Pain in left knee (principal); M25.561 Pain in right knee; I10 Essential (primary) hypertension; D72.829 Elevated white blood cell count, unspecified; D64.9 Anemia, unspecified; E78.5 Hyperlipidemia, unspecified; Z20.822 Contact with and (suspected) exposure to COVID-19; W19.XXXA Unspecified fall, initial encounter; Y92.000 Kitchen of unspecified non-institutional (private) residence as the place of occurrence of the external cause; Z88.2 Allergy status to sulfonamides; Z79.899 Other long term (current) drug therapy; Z79.82 Long term (current) use of aspirin; Z90.49 Acquired absence of other specified parts of digestive tract
CPT/HCPCS: 36415; 73521; 73562; 80048; 80053; 81003; 82550; 83735; 84100; 85025; 85027; 96372; 97162; 97166; 97530; 99284; A9270; G0378; J1644; J2405; J3010; J7030; U0002; 96374; 96375; 99217; 99219; 99225

== ENCOUNTER 2021-10-15 09:43 | Emergency (ER) | payer MEDICARE, BC ==
[2021-10-15] MEDS ORDERED: methylPREDNISolone Sodium Succinate 40 MG/1 ML SDV IM ONE (11:33)
[2021-10-15] MEDS ORDERED: traMADol 50 MG Tab PO ONE (11:33)
[2021-10-15] MEDS: fentaNYL 100 MCG/2 ML SDV IVPUSH ONE ×2 (11:47→14:15)
== END 2021-10-15 15:40 | disposition home or self-care (01) ==
LOC: DL.ED 09:43
DX: S32.011A Stable burst fracture of first lumbar vertebra, initial encounter for closed fracture (principal); M54.6 Pain in thoracic spine; I10 Essential (primary) hypertension; Z79.82 Long term (current) use of aspirin; Z79.899 Other long term (current) drug therapy; Z88.2 Allergy status to sulfonamides; Z88.8 Allergy status to other drugs, medicaments and biological substances
CPT/HCPCS: 72072; 72100; 72128; 72131; 81001; 96374; 96376; 99284; J3010

== ENCOUNTER 2021-10-20 15:31 | Inpatient (IN) | payer MEDICARE, BC ==
[2021-10-20] MEDS ORDERED: Ondansetron 4 MG/2 ML SDV IV ONE (17:20)
[2021-10-20] MEDS ORDERED: HYDROmorphone 0.5 MG/0.5 ML Syringe IVPUSH ONE (17:21)
[2021-10-20] MEDS ORDERED: Sodium Chloride 0.9% 10 ML Syringe FLUSH PRN (17:22)
[2021-10-20] MEDS ORDERED: Sodium Chloride 0.9% 500 ML IV SCH (17:30)
[2021-10-20 18:31] LABS: ANION GAP 13.8 mEq/L (7-13); CHLORIDE,CL 105 mmol/L (98-107); ESTIMATED GFR > 60; SODIUM,NA 143 mmol/L (136-145)
[2021-10-20] MEDS ORDERED: HYDROmorphone 1 MG/ML Syringe IVPUSH ONE (19:46)
[2021-10-20] MEDS ORDERED: Acetaminophen 500 MG Tab PO ONE (23:06)
[2021-10-21] MEDS ORDERED: Docusate Sodium 100 MG Cap PO PRN (01:20)
[2021-10-21] MEDS ORDERED: Ondansetron 4 MG Tab.DIS PO PRN (01:20)
[2021-10-21] MEDS ORDERED: Polyvinyl Alcohol 1.4% Ophth Soln 15 ML Bottle EYEBOTH PRN (01:25)
[2021-10-21] MEDS: HYDROmorphone 0.5 MG/0.5 ML Syringe IVPUSH PRN ×4 (02:17→11:58)
[2021-10-21] MEDS: Omeprazole 20 MG Cap.CR PO SCH (05:01)
[2021-10-21] MEDS ORDERED: Enoxaparin 30 MG/0.3 ML Syringe SUBCUT SCH (09:00)
[2021-10-21] MEDS ORDERED: amLODIPine 5 MG Tab PO SCH (09:00)
[2021-10-21] MEDS: Enoxaparin 40 MG/0.4 ML Syringe SUBCUT SCH (09:19)
[2021-10-21] MEDS: Timolol Maleate 0.5% Ophth Soln 5 ML Bottle EYEBOTH SCH (09:21)
[2021-10-21] MEDS: Calcium Carbonate/Vitamin D3 1250 MG-5 MCG Tab PO SCH ×2 (10:22→17:56)
[2021-10-21] MEDS: Aspirin 81 MG Tab.Chew PO SCH (10:22)
[2021-10-21] MEDS: Lisinopril 5 MG Tab PO SCH (10:22)
[2021-10-21] MEDS: Metoprolol Succinate 25 MG Tab.ER PO SCH (10:22)
[2021-10-21] MEDS: oxyCODONE ER 10 MG TAB.ER PO SCH ×2 (10:23→20:38)
[2021-10-21] MEDS: Docusate Sodium 100 MG Cap PO SCH ×2 (10:23→20:38)
[2021-10-21] MEDS: Sodium Chloride 0.9% 10 ML Syringe FLUSH PRN (11:57)
[2021-10-21] MEDS: Rosuvastatin 10 MG Tab PO SCH (20:40)
[2021-10-21] MEDS: Mirtazapine 15 MG Tab PO SCH (20:44)
[2021-10-21] MEDS: Latanoprost 0.005% Ophth Soln 2.5 ML Bottle EYEBOTH SCH (20:45)
[2021-10-21] MEDS: Lidocaine 5% 700 MG Patch TOP SCH (20:45)
[2021-10-22] MEDS: Omeprazole 20 MG Cap.CR PO SCH (06:40)
[2021-10-22] MEDS: Polyethylene Glycol 3350 Powder 17 GM Packet PO SCH (09:58)
[2021-10-22] MEDS: Metoprolol Succinate 25 MG Tab.ER PO SCH (10:06)
[2021-10-22] MEDS: Enoxaparin 40 MG/0.4 ML Syringe SUBCUT SCH (10:06)
[2021-10-22] MEDS: oxyCODONE ER 10 MG TAB.ER PO SCH ×2 (10:07→20:35)
[2021-10-22] MEDS: Acetaminophen 325 MG Tab PO PRN (10:08)
[2021-10-22] MEDS: Aspirin 81 MG Tab.Chew PO SCH (10:08)
[2021-10-22] MEDS: Calcium Carbonate/Vitamin D3 1250 MG-5 MCG Tab PO SCH ×2 (10:09→18:27)
[2021-10-22] MEDS: Docusate Sodium 100 MG Cap PO SCH ×2 (10:09→20:34)
[2021-10-22] MEDS: Lisinopril 5 MG Tab PO SCH (10:09)
[2021-10-22] MEDS: Timolol Maleate 0.5% Ophth Soln 5 ML Bottle EYEBOTH SCH (10:11)
[2021-10-22] MEDS: Remove Patch **LIDOCAINE PATCH TRDERM SCH (10:13)
[2021-10-22] MEDS: Sodium Chloride 0.9% 10 ML Syringe FLUSH PRN (13:30)
[2021-10-22] MEDS: HYDROmorphone 0.5 MG/0.5 ML Syringe IVPUSH PRN ×2 (13:30→18:27)
[2021-10-22] MEDS: Lidocaine 5% 700 MG Patch TOP SCH (20:33)
[2021-10-22] MEDS: Latanoprost 0.005% Ophth Soln 2.5 ML Bottle EYEBOTH SCH (20:33)
[2021-10-22] MEDS: Rosuvastatin 10 MG Tab PO SCH (20:33)
[2021-10-22] MEDS: Mirtazapine 15 MG Tab PO SCH (20:34)
[2021-10-23] MEDS: Omeprazole 20 MG Cap.CR PO SCH (05:43)
[2021-10-23 07:03] LABS: CHLORIDE,CL 102 mmol/L (98-107); ESTIMATED GFR > 60; SODIUM,NA 139 mmol/L (136-145)
[2021-10-23] MEDS: oxyCODONE ER 10 MG TAB.ER PO SCH ×2 (08:18→20:58)
[2021-10-23] MEDS: Aspirin 81 MG Tab.Chew PO SCH (09:55)
[2021-10-23] MEDS: Polyethylene Glycol 3350 Powder 17 GM Packet PO SCH (09:55)
[2021-10-23] MEDS: Calcium Carbonate/Vitamin D3 1250 MG-5 MCG Tab PO SCH ×2 (09:55→22:00)
[2021-10-23] MEDS: Docusate Sodium 100 MG Cap PO SCH ×2 (09:55→20:58)
[2021-10-23] MEDS: Enoxaparin 40 MG/0.4 ML Syringe SUBCUT SCH (09:55)
[2021-10-23] MEDS: Lisinopril 5 MG Tab PO SCH (09:56)
[2021-10-23] MEDS: Metoprolol Succinate 25 MG Tab.ER PO SCH (09:56)
[2021-10-23] MEDS: Timolol Maleate 0.5% Ophth Soln 5 ML Bottle EYEBOTH SCH (09:57)
[2021-10-23] MEDS: Acetaminophen 325 MG Tab PO PRN (10:24)
[2021-10-23] MEDS: HYDROmorphone 0.5 MG/0.5 ML Syringe IVPUSH PRN ×3 (10:25→16:23)
[2021-10-23] MEDS: Remove Patch **LIDOCAINE PATCH TRDERM SCH (13:37)
[2021-10-23] MEDS: Rosuvastatin 10 MG Tab PO SCH (20:58)
[2021-10-23] MEDS: Mirtazapine 15 MG Tab PO SCH (20:59)
[2021-10-23] MEDS: Latanoprost 0.005% Ophth Soln 2.5 ML Bottle EYEBOTH SCH (21:00)
[2021-10-23] MEDS: Lidocaine 5% 700 MG Patch TOP SCH (21:00)
[2021-10-24] MEDS: Omeprazole 20 MG Cap.CR PO SCH (05:32)
[2021-10-24] MEDS: Docusate Sodium 100 MG Cap PO SCH ×2 (08:51→20:25)
[2021-10-24] MEDS: Lisinopril 5 MG Tab PO SCH (08:51)
[2021-10-24] MEDS: Calcium Carbonate/Vitamin D3 1250 MG-5 MCG Tab PO SCH ×2 (08:51→17:52)
[2021-10-24] MEDS: Aspirin 81 MG Tab.Chew PO SCH (08:51)
[2021-10-24] MEDS: Metoprolol Succinate 25 MG Tab.ER PO SCH (08:52)
[2021-10-24] MEDS: Enoxaparin 40 MG/0.4 ML Syringe SUBCUT SCH (08:54)
[2021-10-24] MEDS: oxyCODONE ER 10 MG TAB.ER PO SCH ×2 (08:54→20:26)
[2021-10-24] MEDS: Polyethylene Glycol 3350 Powder 17 GM Packet PO SCH ×2 (08:54→08:57)
[2021-10-24] MEDS: Timolol Maleate 0.5% Ophth Soln 5 ML Bottle EYEBOTH SCH (08:57)
[2021-10-24] MEDS: Remove Patch **LIDOCAINE PATCH TRDERM SCH (11:39)
[2021-10-24] MEDS: HYDROmorphone 0.5 MG/0.5 ML Syringe IVPUSH PRN ×2 (11:39→16:26)
[2021-10-24] MEDS: Sodium Chloride 0.9% 1,000 ML IV SCH (15:44)
[2021-10-24] MEDS: Mirtazapine 15 MG Tab PO SCH (20:18)
[2021-10-24] MEDS: Rosuvastatin 10 MG Tab PO SCH (20:24)
[2021-10-24] MEDS: Latanoprost 0.005% Ophth Soln 2.5 ML Bottle EYEBOTH SCH (20:26)
[2021-10-24] MEDS: Lidocaine 5% 700 MG Patch TOP SCH (20:27)
[2021-10-25] MEDS: Sodium Chloride 0.9% 1,000 ML IV SCH ×2 (04:35→17:22)
[2021-10-25] MEDS: Omeprazole 20 MG Cap.CR PO SCH (06:01)
[2021-10-25] MEDS: Calcium Carbonate/Vitamin D3 1250 MG-5 MCG Tab PO SCH ×2 (09:34→17:22)
[2021-10-25] MEDS: Metoprolol Succinate 25 MG Tab.ER PO SCH (09:35)
[2021-10-25] MEDS: Lisinopril 5 MG Tab PO SCH (09:36)
[2021-10-25] MEDS: Docusate Sodium 100 MG Cap PO SCH ×2 (09:36→20:26)
[2021-10-25] MEDS: oxyCODONE ER 10 MG TAB.ER PO SCH ×2 (09:37→20:23)
[2021-10-25] MEDS: Aspirin 81 MG Tab.Chew PO SCH (09:38)
[2021-10-25] MEDS: Polyethylene Glycol 3350 Powder 17 GM Packet PO SCH (09:38)
[2021-10-25] MEDS: Enoxaparin 40 MG/0.4 ML Syringe SUBCUT SCH (09:38)
[2021-10-25] MEDS: Timolol Maleate 0.5% Ophth Soln 5 ML Bottle EYEBOTH SCH (09:45)
[2021-10-25] MEDS: Remove Patch **LIDOCAINE PATCH TRDERM SCH (09:45)
[2021-10-25] MEDS: Sodium Chloride 0.9% 10 ML Syringe FLUSH PRN (09:59)
[2021-10-25] MEDS: HYDROmorphone 0.5 MG/0.5 ML Syringe IVPUSH PRN ×4 (10:00→20:32)
[2021-10-25] MEDS: Latanoprost 0.005% Ophth Soln 2.5 ML Bottle EYEBOTH SCH (20:19)
[2021-10-25] MEDS: Mirtazapine 15 MG Tab PO SCH (20:25)
[2021-10-25] MEDS: Rosuvastatin 10 MG Tab PO SCH (20:27)
[2021-10-25] MEDS: Lidocaine 5% 700 MG Patch TOP SCH (20:37)
[2021-10-26] MEDS: HYDROmorphone 0.5 MG/0.5 ML Syringe IVPUSH PRN (02:20)
[2021-10-26] MEDS: Omeprazole 20 MG Cap.CR PO SCH ×2 (06:20→06:26)
[2021-10-26] MEDS: Sodium Chloride 0.9% 1,000 ML IV SCH (06:22)
[2021-10-26] MEDS: Polyethylene Glycol 3350 Powder 17 GM Packet PO SCH (08:20)
[2021-10-26] MEDS: Docusate Sodium 100 MG Cap PO SCH ×2 (08:21→20:14)
[2021-10-26] MEDS: Enoxaparin 40 MG/0.4 ML Syringe SUBCUT SCH (08:21)
[2021-10-26] MEDS: Metoprolol Succinate 25 MG Tab.ER PO SCH (08:21)
[2021-10-26] MEDS: Calcium Carbonate/Vitamin D3 1250 MG-5 MCG Tab PO SCH ×2 (08:21→17:23)
[2021-10-26] MEDS: Aspirin 81 MG Tab.Chew PO SCH (08:22)
[2021-10-26] MEDS: predniSONE 20 MG Tab PO SCH (08:22)
[2021-10-26] MEDS: oxyCODONE ER 10 MG TAB.ER PO SCH ×2 (08:22→20:14)
[2021-10-26] MEDS: Timolol Maleate 0.5% Ophth Soln 5 ML Bottle EYEBOTH SCH (08:29)
[2021-10-26] MEDS: Remove Patch **LIDOCAINE PATCH TRDERM SCH (08:39)
[2021-10-26 10:43] LABS: ANION GAP 11.3 mEq/L (7-13); CHLORIDE,CL 104 mmol/L (98-107); ESTIMATED GFR > 60; SODIUM,NA 136 mmol/L (136-145)
[2021-10-26] MEDS: Latanoprost 0.005% Ophth Soln 2.5 ML Bottle EYEBOTH SCH (20:11)
[2021-10-26] MEDS: Mirtazapine 15 MG Tab PO SCH (20:12)
[2021-10-26] MEDS: Rosuvastatin 10 MG Tab PO SCH (20:13)
[2021-10-26] MEDS: Lidocaine 5% 700 MG Patch TOP SCH (20:15)
[2021-10-27] MEDS: Omeprazole 20 MG Cap.CR PO SCH (05:42)
[2021-10-27] MEDS: Aspirin 81 MG Tab.Chew PO SCH (08:06)
[2021-10-27] MEDS: Enoxaparin 40 MG/0.4 ML Syringe SUBCUT SCH (08:06)
[2021-10-27] MEDS: Polyethylene Glycol 3350 Powder 17 GM Packet PO SCH (08:07)
[2021-10-27] MEDS: Calcium Carbonate/Vitamin D3 1250 MG-5 MCG Tab PO SCH ×2 (08:07→18:02)
[2021-10-27] MEDS: predniSONE 20 MG Tab PO SCH (08:07)
[2021-10-27] MEDS: oxyCODONE ER 10 MG TAB.ER PO SCH ×2 (08:07→20:07)
[2021-10-27] MEDS: Docusate Sodium 100 MG Cap PO SCH ×2 (08:11→20:19)
[2021-10-27] MEDS: Metoprolol Succinate 25 MG Tab.ER PO SCH (08:11)
[2021-10-27] MEDS: Timolol Maleate 0.5% Ophth Soln 5 ML Bottle EYEBOTH SCH (08:12)
[2021-10-27] MEDS: Remove Patch **LIDOCAINE PATCH TRDERM SCH (08:44)
[2021-10-27] MEDS: oxyCODONE 5 MG Tab PO PRN ×2 (10:03→15:42)
[2021-10-27] MEDS: Lactulose Soln 10 GM/15 ML 30 ML UD Cup PO SCH ×2 (13:57→20:04)
[2021-10-27] MEDS: Acetaminophen 325 MG Tab PO PRN (15:41)
[2021-10-27] MEDS: Rosuvastatin 10 MG Tab PO SCH (20:04)
[2021-10-27] MEDS: Gabapentin 100 MG Cap PO SCH (20:04)
[2021-10-27] MEDS: Mirtazapine 15 MG Tab PO SCH (20:05)
[2021-10-27] MEDS: Lidocaine 5% 700 MG Patch TOP SCH (20:07)
[2021-10-27] MEDS: Latanoprost 0.005% Ophth Soln 2.5 ML Bottle EYEBOTH SCH (20:17)
[2021-10-28] MEDS: Omeprazole 20 MG Cap.CR PO SCH (05:42)
[2021-10-28] MEDS: oxyCODONE ER 10 MG TAB.ER PO SCH ×2 (08:15→21:12)
[2021-10-28] MEDS: Polyethylene Glycol 3350 Powder 17 GM Packet PO SCH (09:00)
[2021-10-28] MEDS: Docusate Sodium 100 MG Cap PO SCH ×2 (09:00→21:10)
[2021-10-28] MEDS: predniSONE 20 MG Tab PO SCH (09:30)
[2021-10-28] MEDS: Aspirin 81 MG Tab.Chew PO SCH (09:47)
[2021-10-28] MEDS: Gabapentin 100 MG Cap PO SCH ×3 (09:49→21:12)
[2021-10-28] MEDS: Calcium Carbonate/Vitamin D3 1250 MG-5 MCG Tab PO SCH ×2 (09:52→18:08)
[2021-10-28] MEDS: Enoxaparin 40 MG/0.4 ML Syringe SUBCUT SCH (09:55)
[2021-10-28] MEDS: Remove Patch **LIDOCAINE PATCH TRDERM SCH (10:00)
[2021-10-28] MEDS: Timolol Maleate 0.5% Ophth Soln 5 ML Bottle EYEBOTH SCH (10:15)
[2021-10-28] MEDS: Metoprolol Succinate 25 MG Tab.ER PO SCH (12:27)
[2021-10-28] MEDS ORDERED: Acetaminophen 325 MG Tab PO SCH (14:00)
[2021-10-28] MEDS: oxyCODONE 5 MG Tab PO PRN (14:17)
[2021-10-28] MEDS: Calcitonin (Salmon) Nasal Spray 3.7 ML Bottle NAS SCH (18:06)
[2021-10-28] MEDS: Rosuvastatin 10 MG Tab PO SCH (21:10)
[2021-10-28] MEDS: Lidocaine 5% 700 MG Patch TOP SCH (21:12)
[2021-10-28] MEDS: Mirtazapine 15 MG Tab PO SCH (21:13)
[2021-10-28] MEDS: Acetaminophen 500 MG Tab PO SCH (21:19)
[2021-10-28] MEDS: Latanoprost 0.005% Ophth Soln 2.5 ML Bottle EYEBOTH SCH (21:20)
[2021-10-29] MEDS: oxyCODONE 5 MG Tab PO PRN ×2 (04:40→16:49)
[2021-10-29] MEDS: Omeprazole 20 MG Cap.CR PO SCH (05:00)
[2021-10-29] MEDS: Acetaminophen 500 MG Tab PO SCH ×3 (08:33→20:01)
[2021-10-29] MEDS: predniSONE 20 MG Tab PO SCH (08:35)
[2021-10-29] MEDS: Metoprolol Succinate 25 MG Tab.ER PO SCH (08:39)
[2021-10-29] MEDS: Gabapentin 100 MG Cap PO SCH ×3 (08:41→20:00)
[2021-10-29] MEDS: Calcium Carbonate/Vitamin D3 1250 MG-5 MCG Tab PO SCH ×2 (08:42→18:44)
[2021-10-29] MEDS: Polyethylene Glycol 3350 Powder 17 GM Packet PO SCH (08:46)
[2021-10-29] MEDS: Aspirin 81 MG Tab.Chew PO SCH (09:39)
[2021-10-29] MEDS: oxyCODONE ER 10 MG TAB.ER PO SCH ×2 (09:39→20:01)
[2021-10-29] MEDS: Enoxaparin 40 MG/0.4 ML Syringe SUBCUT SCH (09:40)
[2021-10-29] MEDS: Docusate Sodium 100 MG Cap PO SCH ×2 (09:42→20:03)
[2021-10-29] MEDS: Timolol Maleate 0.5% Ophth Soln 5 ML Bottle EYEBOTH SCH (09:48)
[2021-10-29] MEDS: Calcitonin (Salmon) Nasal Spray 3.7 ML Bottle NAS SCH (09:48)
[2021-10-29] MEDS: Remove Patch **LIDOCAINE PATCH TRDERM SCH (12:15)
[2021-10-29] MEDS: Mirtazapine 15 MG Tab PO SCH (20:00)
[2021-10-29] MEDS: Rosuvastatin 10 MG Tab PO SCH (20:00)
[2021-10-29] MEDS: Lidocaine 5% 700 MG Patch TOP SCH (20:03)
[2021-10-29] MEDS: Latanoprost 0.005% Ophth Soln 2.5 ML Bottle EYEBOTH SCH (20:04)
[2021-10-30] MEDS: oxyCODONE 5 MG Tab PO PRN (04:05)
[2021-10-30] MEDS: Omeprazole 20 MG Cap.CR PO SCH (05:53)
[2021-10-30] MEDS: Calcium Carbonate/Vitamin D3 1250 MG-5 MCG Tab PO SCH ×2 (08:45→17:22)
[2021-10-30] MEDS: Metoprolol Succinate 25 MG Tab.ER PO SCH (08:45)
[2021-10-30] MEDS: Aspirin 81 MG Tab.Chew PO SCH (08:45)
[2021-10-30] MEDS: Gabapentin 100 MG Cap PO SCH ×3 (08:45→20:52)
[2021-10-30] MEDS: predniSONE 20 MG Tab PO SCH (08:46)
[2021-10-30] MEDS: oxyCODONE ER 10 MG TAB.ER PO SCH ×2 (08:47→20:55)
[2021-10-30] MEDS: Acetaminophen 500 MG Tab PO SCH ×3 (08:48→20:56)
[2021-10-30] MEDS: Calcitonin (Salmon) Nasal Spray 3.7 ML Bottle NAS SCH (08:49)
[2021-10-30] MEDS: Enoxaparin 40 MG/0.4 ML Syringe SUBCUT SCH (08:49)
[2021-10-30] MEDS: Docusate Sodium 100 MG Cap PO SCH ×2 (08:50→20:51)
[2021-10-30] MEDS: Remove Patch **LIDOCAINE PATCH TRDERM SCH (08:50)
[2021-10-30] MEDS: Polyethylene Glycol 3350 Powder 17 GM Packet PO SCH (08:50)
[2021-10-30] MEDS: Timolol Maleate 0.5% Ophth Soln 5 ML Bottle EYEBOTH SCH (08:51)
[2021-10-30] MEDS: Mirtazapine 15 MG Tab PO SCH (20:54)
[2021-10-30] MEDS: Rosuvastatin 10 MG Tab PO SCH (20:55)
[2021-10-30] MEDS: Latanoprost 0.005% Ophth Soln 2.5 ML Bottle EYEBOTH SCH (20:57)
[2021-10-30] MEDS: Sodium Chloride 0.9% 10 ML Syringe FLUSH PRN (20:58)
[2021-10-30] MEDS: Lidocaine 5% 700 MG Patch TOP SCH (21:01)
[2021-10-31 05:50] LABS: ANION GAP 10.8 mEq/L (7-13); CHLORIDE,CL 105 mmol/L (98-107); ESTIMATED GFR > 60; SODIUM,NA 140 mmol/L (136-145)
[2021-10-31] MEDS: Omeprazole 20 MG Cap.CR PO SCH (06:04)
[2021-10-31] MEDS: Gabapentin 100 MG Cap PO SCH (08:35)
[2021-10-31] MEDS: Calcium Carbonate/Vitamin D3 1250 MG-5 MCG Tab PO SCH ×2 (08:35→17:49)
[2021-10-31] MEDS: Metoprolol Succinate 25 MG Tab.ER PO SCH (08:36)
[2021-10-31] MEDS: Aspirin 81 MG Tab.Chew PO SCH (08:37)
[2021-10-31] MEDS: predniSONE 20 MG Tab PO SCH (08:37)
[2021-10-31] MEDS: Enoxaparin 40 MG/0.4 ML Syringe SUBCUT SCH (08:37)
[2021-10-31] MEDS: Acetaminophen 500 MG Tab PO SCH ×3 (08:38→20:33)
[2021-10-31] MEDS: oxyCODONE ER 10 MG TAB.ER PO SCH ×2 (08:39→20:33)
[2021-10-31] MEDS: Docusate Sodium 100 MG Cap PO SCH ×2 (08:40→20:34)
[2021-10-31] MEDS: Remove Patch **LIDOCAINE PATCH TRDERM SCH (08:41)
[2021-10-31] MEDS: Polyethylene Glycol 3350 Powder 17 GM Packet PO SCH (08:41)
[2021-10-31] MEDS: Timolol Maleate 0.5% Ophth Soln 5 ML Bottle EYEBOTH SCH (08:42)
[2021-10-31] MEDS: Calcitonin (Salmon) Nasal Spray 3.7 ML Bottle NAS SCH (08:42)
[2021-10-31] MEDS ORDERED: Polyethylene Glycol 3350 Powder 17 GM Packet PO PRN (12:39)
[2021-10-31] MEDS: Gabapentin 300 MG Cap PO SCH ×2 (14:50→20:31)
[2021-10-31] MEDS: Latanoprost 0.005% Ophth Soln 2.5 ML Bottle EYEBOTH SCH (20:30)
[2021-10-31] MEDS: Rosuvastatin 10 MG Tab PO SCH (20:31)
[2021-10-31] MEDS: Lidocaine 5% 700 MG Patch TOP SCH (20:31)
[2021-10-31] MEDS: Mirtazapine 15 MG Tab PO SCH (20:32)
[2021-11-01] MEDS: Omeprazole 20 MG Cap.CR PO SCH (06:00)
[2021-11-01] MEDS: Metoprolol Succinate 25 MG Tab.ER PO SCH (08:29)
[2021-11-01] MEDS: Aspirin 81 MG Tab.Chew PO SCH (08:29)
[2021-11-01] MEDS: Gabapentin 300 MG Cap PO SCH (08:29)
[2021-11-01] MEDS: Calcium Carbonate/Vitamin D3 1250 MG-5 MCG Tab PO SCH (08:29)
[2021-11-01] MEDS: Docusate Sodium 100 MG Cap PO SCH (08:29)
[2021-11-01] MEDS: Enoxaparin 40 MG/0.4 ML Syringe SUBCUT SCH (08:30)
[2021-11-01] MEDS: oxyCODONE ER 10 MG TAB.ER PO SCH (08:30)
[2021-11-01] MEDS: Acetaminophen 500 MG Tab PO SCH (08:30)
[2021-11-01] MEDS: Remove Patch **LIDOCAINE PATCH TRDERM SCH (08:34)
[2021-11-01] MEDS: Timolol Maleate 0.5% Ophth Soln 5 ML Bottle EYEBOTH SCH (08:35)
[2021-11-01] MEDS: Calcitonin (Salmon) Nasal Spray 3.7 ML Bottle NAS SCH (08:35)
[2021-11-01] MEDS ORDERED: Dexamethasone 4 MG Tab PO SCH (09:00)
== END 2021-11-01 13:59 | DRG 92 ==
LOC: DL.ED 15:31 → DL.MS 10-21 00:16
PROVIDERS: ADMIT Internal Medicine; ATTEND Internal Medicine
DX: M54.6 Pain in thoracic spine (principal); G89.29 Other chronic pain; S32.001A Stable burst fracture of unspecified lumbar vertebra, initial encounter for closed fracture; S22.049A Unspecified fracture of fourth thoracic vertebra, initial encounter for closed fracture; H54.7 Unspecified visual loss; I10 Essential (primary) hypertension; H40.9 Unspecified glaucoma; Z85.828 Personal history of other malignant neoplasm of skin; M81.0 Age-related osteoporosis without current pathological fracture; M41.9 Scoliosis, unspecified; M54.59 Other low back pain; Z20.822 Contact with and (suspected) exposure to COVID-19; X58.XXXA Exposure to other specified factors, initial encounter; M25.572 Pain in left ankle and joints of left foot; K59.00 Constipation, unspecified; Z74.09 Other reduced mobility; Z78.9 Other specified health status; Z79.82 Long term (current) use of aspirin; Z79.899 Other long term (current) drug therapy; Z88.2 Allergy status to sulfonamides; Z88.8 Allergy status to other drugs, medicaments and biological substances
CPT/HCPCS: 36415; 51702; 73600-LT; 80048; 80053; 81001; 83605; 84550; 85025; 93971; 96374; 96375; 96376; 97161-GP; 97166-GO; 97530-GO; 97530-GP; 99233; 99238; 99284; 99285-25; A9270-GY; J1170; J1650; J2405; J3490; J7030; J7040; J7512; J8540; U0002